=== PATIENT | male | born 1960 | race Caucasian/White ===

== ENCOUNTER 2016-09-26 18:31 | Emergency (ER) | payer MEDICARE | END 2016-09-26 20:20 | disposition home or self-care (01) | LOC: ER1 18:31 | DX: G40.909 Epilepsy, unspecified, not intractable, without status epilepticus (principal); Z79.899 Other long term (current) drug therapy | CPT/HCPCS: 99284 ==

== ENCOUNTER 2016-12-07 18:04 | Emergency (ER) | payer MEDICARE ==
[2016-12-07 20:19] LABS: HEMOGLOBIN 14.8 gm/dl (14.0-17.5); RED BLOOD COUNT 4.65 M/UL (4.20-5.50); WHITE BLOOD COUNT 7.1 K/UL (4.5-11.0)
[2016-12-07 20:36] LABS: BUN/CREATININE RATIO 10 (0-10)
== END 2016-12-07 23:25 | disposition home or self-care (01) ==
LOC: ER1 18:04
PROVIDERS: Emergency Medicine
DX: G40.909 Epilepsy, unspecified, not intractable, without status epilepticus (principal); Z79.899 Other long term (current) drug therapy
CPT/HCPCS: 36415; 70450; 80053; 83690; 85025; 93005; 96361; 96374; 96375; 99285; J1200; J2765

== ENCOUNTER 2020-07-16 12:03 | Emergency (ER) | payer MEDICARE, OTHER ==
[~2020-07-16 12:03] MED LIST: ZITHROMAX250 MG PO
[2020-07-16] MEDS ORDERED: IBU800 MG PO (17:10)
[2020-07-16] MEDS ORDERED: NORFLEX 100 MG100 MG PO (17:12)
== END 2020-07-16 18:20 | disposition home or self-care (01) ==
LOC: ER1 12:03
DX: M43.16 Spondylolisthesis, lumbar region (principal); M48.061 Spinal stenosis, lumbar region without neurogenic claudication; M51.26 Other intervertebral disc displacement, lumbar region; Z91.013 Allergy to seafood
CPT/HCPCS: 71045; 72128; 72131; 81001; 96372; 99284; J2360

== ENCOUNTER 2020-12-22 18:53 | Emergency (ER) | payer MEDICARE, OTHER ==
[~2020-12-22 18:53] MED LIST changes: +IBU800 MG PO; +NORFLEX 100 MG100 MG PO
== END 2020-12-22 21:24 | disposition home or self-care (01) ==
LOC: ER1 18:53
DX: S01.81XA Laceration without foreign body of other part of head, initial encounter (principal); S16.1XXA Strain of muscle, fascia and tendon at neck level, initial encounter; E78.5 Hyperlipidemia, unspecified; I25.10 Atherosclerotic heart disease of native coronary artery without angina pectoris; Z79.01 Long term (current) use of anticoagulants; W22.8XXA Striking against or struck by other objects, initial encounter; Y92.009 Unspecified place in unspecified non-institutional (private) residence as the place of occurrence of the external cause; Z79.899 Other long term (current) drug therapy
CPT/HCPCS: 70450; 70486; 72040; 99284